=== PATIENT | female | born 1955 | race Caucasian/White ===

== ENCOUNTER 2017-03-17 11:34 | Inpatient (IN) | payer OTHER ==
[~2017-03-17] VITALS: Ht 154.9 cm; Wt 66.2 kg
--- NOTE | 2017-03-17 12:32 | NUR ---
PT C/O CHEST PAIN THAT BEGAN LAST SATURDAY. PT DENIES ANY CHANGE OF DAILY ROUTINE AND SOB. PT DESCRIBES CHEST PAIN FEELING SHARP THAT ONLY LAST 1-2 MIN. PT ALSO STATES SWELLING ON BOTH LOWER EXTREMITIES. BILATERAL FEET NOTED TO BE SWOLLEN. CAP REFILL < 3 WITH A STRONG PEDAL PULSES. IV ESTABLISHED ON PT LEFT FOREARM AND BLOOD SAMPLES COLLECTED. MSE COMPLETED BY DR MANSFIELD. PT IS LAYING IN BED CONNECTED TO CM NO RESPIRATORY DISTRESS NOTED AT THIS TIME.
[2017-03-17 12:54] LABS: PLATELET COUNT 245 x10^3mcL (130-400); RED CELL DISTRIBUTION WIDTH 12.6 % (11.5-14.5)
--- NOTE | 2017-03-17 12:54 | NUR ---
X-RAY AT BEDSIDE
[2017-03-17 12:58] LABS: CHLORIDE SERUM 106 mmol/L (98-107); CREATININE SERUM 0.9 mg/dL (0.6-1.0); GFR1 > 60 mL/min; GLUCOSE SERUM 105 mg/dL (74-106); POTASSIUM SERUM 3.9 mmol/L (3.5-5.1); SODIUM SERUM 144 mmol/L (136-145)
--- NOTE | 2017-03-17 12:59 | NUR ---
ASPIRIN GIVEN TO PT PER MD ORDERS. PT DENIES ANY ALLERGIES TO MEDICATION. PT EDUCATED ON MEDICATION AND VERBALIZES UNDERSTANDING. PT CURRENTLY IN RESTROOM GETTING A URINE SAMPLE. NO DISTRESS NOTED.
[2017-03-17 13:03] LABS: ALBUMIN 3.6 g/dL (3.4-5.0); ALKALINE PHOSPHATASE 69 U/L (46-116); ALT/SGPT 21 U/L (14-59); AST/SGOT 14 U/L (15-37); BILIRUBIN TOTAL 0.2 mg/dL (0.20-1.00); TOTAL PROTEIN, SERUM 7.1 g/dL (6.4-8.2)
--- NOTE | 2017-03-17 13:12 | NUR ---
PT RETURNED FROM RESTROOM. PLACED ON CM.
--- NOTE | 2017-03-17 13:13 | NUR ---
PTS DAUGHTER AT BEDSIDE.
[2017-03-17 13:19] LABS: MONOCYTE 14 % (0-7); SEGMENTED NEUTROPHILS 52 % (37-75); rbc morphology (normal/abnorm) ABNORMAL (NORMAL)
[2017-03-17 13:20] LABS: PLATELET MORPHOLOGY N
[2017-03-17 13:40] LABS: AMPHETAMINE QUAL UR NONE DETECTED (NEG <=1000)
[2017-03-17 13:51] LABS: T4(THYROXINE) 7.5 ug/dL (4.7-13.3)
--- NOTE | 2017-03-17 15:43 | NUR ---
REPORT GIVEN TO DEVELOPMENT TECHNOLOGISTOKSANA FOR CONTINUITY OF CARE.
--- NOTE | 2017-03-17 16:06 | NUR ---
PT LAYING IN BED TALKING ON THE PHONE AND LAUGHING. NO DISTRESS NOTED AT THIS TIME.
--- NOTE | 2017-03-17 16:31 | NUR ---
PT ARRIVED ON UNIT @ 1631 ON GURNEY FROM ED ACCOMPANIED BY ED RNS AND EMT. PT IS AOX4, AMBULATORY. PT RESPONDS TO COMMANDS, APPROPRIATE SPEECH, GUAMANIAN SPEAKING W/ SOME TAJIK. PERRLA, 2MM BRISK. BREATHING EVEN AND UNLABORED ON ROOM AIR. LUNG SOUNDS ARE CLEAR BILATERALLY. S1 S2 HEART SOUNDS AUSCULTATED. ON TELE #46, NSR, HR = 63. PULSES ARE MODERATE X4. CAP REFILL < 3 S. SKIN IS WARM AND YOUNGBLOOD. NO EDEMA NOTED AT THIS TIME. LEFT WRIST IV, 20GA, INTACT, FLUSHES WELL. NS INITIATED @ 90 CC/HR PER ORDER. ABD IS SOFT AND ROUNDED, BOWEL SOUNDS ACTIVE X4Q. PT STATES SHE HAD SOFT BM TODAY AND VOIDS FREELY. SKIN IS INTACT. PT HAS STRONG STRENGTH TO ALL EXTREMETIES, NO WEAKNESS NOTED. PT DENIES CHEST PAIN AT THIS TIME, DENIES HEADACHE, DENIES PAIN. NO DISTRESS NOTED. ORIENTED PT TO ROOM. BED LOW, SIDE RAILS UP X2, CALL LIGHT IN REACH. WILL CONTINUE TO MONITOR.
[2017-03-17 16:32] LABS: PHOSPHOROUS 2.6 mg/dL (2.5-4.9)
[2017-03-17 16:40] LABS: CHOLESTEROL/HDL RATIO 2.9
[2017-03-17 16:41] LABS: FREE T4 0.81 ng/dL (0.76-1.46); FREE THYROXINE INDEX 2.3 ug/dL (1.4-4.5); T4(THYROXINE) 7.2 ug/dL (4.7-13.3)
[2017-03-17 17:10] VITALS: BP 116/66
--- NOTE | 2017-03-17 19:28 | NUR ---
NURSING CO-SIGN THE DOCUMENTATION ENTERED BY THE IP HAS BEEN REVIEWED. REVIEWED/CO-SIGNED BY: Cris Hirsch DOCUMENTATION DONE BY:LESLEY FUENTES
--- NOTE | 2017-03-17 19:28 | NUR ---
REMAINS IN NO DISTRESS, AWAKE AND ALERT. VS STABLE IVF INFUSING WELL AND SITE CLEAR. NO C/O CHEST PAIN AT THIS TIME. WILL BE ENDORSED TO INCOMING SHIFT.
--- NOTE | 2017-03-17 19:54 | NUR ---
PT CURRENTLY RESTING IN BED, NO ACUTE DISTRESS. A/O X4. TELE #46 SHOWING NSR. DENIES CHEST PAIN. PULSES PALPABLE IN ALL EXTREMITIES, NO EDEMA NOTED. LUNG SOUNDS CTA BILATERALLY. BOWEL SOUNDS ACTIVE, LAST BM 03/17/17. VOIDING WELL. AMBULATORY. SKIN INTACT. BLE VARICOSE VEINS NOTED. DENIES PAIN AT THIS TIME. IV PATENT AND INTACT. BED IN LOWEST POSITION, SIDE RAILS UP X2, SCDS IN PLACE, CALL LIGHT WITHIN REACH. WILL CONTINUE TO MONITOR.
[2017-03-17 20:28] VITALS: BP 108/62
[2017-03-17 22:02] VITALS: BP 119/72
[2017-03-17 22:36] VITALS: Ht 154.9 cm; Wt 66.2 kg
--- NOTE | 2017-03-18 01:08 | NUR ---
PT CURRENTLY RESTING IN BED, NO ACUTE DISTRESS. WILL CONTINUE TO MONITOR.
--- NOTE | 2017-03-18 05:57 | NUR ---
PT SLEPT PERIODICALLY THROUGHOUT NIGHT, NO ACUTE DISTRESS. ALL NEEDS MET AND ATTENDED TO. NO SIGNFICANT CHANGES. IV PATENT AND INTACT. BED IN LOWEST POSITION, SIDE RAILS UP X2, SCDS IN PLACE, CALL LIGHT WITHIN REACH. WILL ENDORSE CARE TO ONCOMING NURSE.
[2017-03-18 06:11] LABS: BASOPHIL % 0.8 % (0-2); PLATELET COUNT 222 x10^3mcL (130-400); RED CELL DISTRIBUTION WIDTH 13.8 % (11.5-14.5)
[2017-03-18 06:17] VITALS: BP 115/64
[2017-03-18 06:32] LABS: CALCIUM 8.7 mg/dL (8.5-10.1); CARBON DIOXIDE 28.9 mmol/L (21-32); CHLORIDE SERUM 108 mmol/L (98-107); CREATININE SERUM 0.9 mg/dL (0.6-1.0); GFR1 > 60 mL/min; GLUCOSE SERUM 94 mg/dL (74-106); MAGNESIUM 2.1 mg/dL (1.8-2.4); PHOSPHOROUS 3.9 mg/dL (2.5-4.9); POTASSIUM SERUM 4.2 mmol/L (3.5-5.1); SODIUM SERUM 144 mmol/L (136-145)
--- NOTE | 2017-03-18 07:10 | NUR ---
RECEIVED REPORT FROM [facility] MARIBEL MORRIS AT THIS TIME. PATIENT IS RESTING IN BED AWAKE, ALERT AND O X 4. TELE # [address], C/O CHEST TIGHTNESS 2/10. ON ROOM AIR, NO DISTRESS NOTED, LUNGS CTA. PULSES MODERATE, NO EDEMA NOTED. BOWEL SOUNDS ACTIVE. SKIN, WARM, DRY INTACT. IV TO RAC IN PLACE. INSTRUCTED ON USE OF CALL LIGHT.
--- NOTE | 2017-03-18 08:21 | NUR ---
ROUNDS MADE AT THIS TIME. DR. ROBBINS, RESIDENT TEAM, FIREARMS SPECIALIST ATIYA AND PRIMARY RN AT THE BEDSIDE. PLAN OF CARE DISCUSSED. PATIENT VERBALIZES UNDERSTANDING.
[2017-03-18 10:05] VITALS: BP 123/60
[2017-03-18 10:58] LABS: UA SPECIFIC GRAVITY <=1.005 (1.005-1.035); microscopic required? YES; urine erythrocyte TRACE (NEGATIVE)
--- NOTE | 2017-03-18 11:10 | NUR ---
PATIENT RESTING IN BED, NO DISTRES NOTED. PATIENT DENIES ANY PAIN AT THIS TIME. MADE PATIENT COMFORTABLE AND CREATED RELAXING ENVIORNMENT. CALL LIGHT WITH IN REACH.
--- NOTE | 2017-03-18 11:14 | NUR ---
NOTIFIED DR. MCGILL OF [facility] RESULTS AT THIS TIME.
[2017-03-18 14:03] VITALS: BP 116/56
--- NOTE | 2017-03-18 14:51 | NUR ---
PATIENT RESTING IN BED, NO DISTRESS NOTED. FAMILY AT THE BEDSIDE.
--- NOTE | 2017-03-18 17:13 | NUR ---
PT C/O PAIN IN IV SITE, REMOVED IV CATHETER, CANNULA INTACT, STARTED NEW IV 20G IN RFA. IV SITE WNL
[2017-03-18 18:02] VITALS: BP 115/60
--- NOTE | 2017-03-18 20:00 | NUR ---
PT A/A/O X4, FAMILY AT BEDSIDE. PT DENIES DIZZINESS AND HEADACHE. BREATH SOUNDS CLEAR. BREATHING EVEN AND UNLABORED ON ROOM AIR. DENIES CHEST PAIN AND PRESSURE THUS FAR. BOWEL SOUNDS ACTIVE. NO C/O N/V AND ABD PAIN. IV INTACT ON THE RIGHT FOREARM INFUSING WITH NS AT 90M ML/HR. MADE PT COMFORTABLE. PLACED CALL LIGHT WITH IN REACH. WILL CONTINUE TO MONITOR.
[2017-03-18 20:31] VITALS: BP 103/45
--- NOTE | 2017-03-19 00:14 | NUR ---
PT RESTING WITH EYES CLOSED. NO DISTRESS AND DISCOMFORT NOTED. MADE PT COMFORTABLE. WILL CONTINUE TO MONITOR.
[2017-03-19 05:16] VITALS: BP 103/56
--- NOTE | 2017-03-19 05:39 | NUR ---
PT QUIET AND RESTING. NO C/O CHEST PAIN THUS FAR. IV INTACT AND INFUSING ORDERED. MADE PT COMFORTABLE. WILL ENDORSE TO THE AM NURSE ACCORDINGLY.
--- NOTE | 2017-03-19 07:15 | NUR ---
PT WAS ENDORSE TO ME THIS MORNING. PT A/O X4. PT BREATHING EVEN AND UNLABORED. IV TO THE RFA INFUSING AT 90 ML/HR NS. NO REDNESS OR SWELLING NOTED. PT DENIES ANY CHEST PAIN OR DISCOMFORT AT THIS TIME. CALL LIGHT IN REACH. BED IN LOW POSITION. WILL CONTINUE PLAN OF CARE.
[2017-03-19] MEDS ORDERED: MAC100 PO (09:30)
[2017-03-19] MEDS ORDERED: BD LACTINEX1.4 MG PO (09:31)
[2017-03-19] MEDS ORDERED: IBUPROFEN400 MG PO (09:31)
[2017-03-19 11:10] VITALS: BP 115/60
[2017-03-19 13:51] VITALS: BP 115/60
--- NOTE | 2017-03-19 14:20 | NUR ---
WENT OVER DISCHARGE PAPER WORK WITH PT AND DAUGHTER. PT AGREED AND SIGNED ALL DOCUMENTS. REMOVED PT TELE 46 AND IV. NO REDNESS OR SWELLING NOTED, PT TOLERATED REMOVAL WELL. PT DENIES CHEST PAIN OR DISCOMFORT AT THIS TIME. EL ELKINS WALKED PT AND DAUGHTER DOWN TO DISCHARGE LOBBY.
== END 2017-03-19 14:14 | disposition home or self-care (01) | DRG 203 ==
LOC: ED 11:34 → DU 14:01 → MU 03-19 11:19
PROVIDERS: Emergency Medicine; ADMIT Family Medicine
DX: M94.0 Chondrocostal junction syndrome [Tietze] (principal); N39.0 Urinary tract infection, site not specified; E78.5 Hyperlipidemia, unspecified; M19.041 Primary osteoarthritis, right hand; M19.042 Primary osteoarthritis, left hand; M17.0 Bilateral primary osteoarthritis of knee; Z68.27 Body mass index [BMI] 27.0-27.9, adult
CPT/HCPCS: 82962; 83880; 84439; J0696; J7030

== ENCOUNTER 2017-03-23 09:19 | Emergency (ER) | payer OTHER ==
[~2017-03-23 09:19] MED LIST: BD LACTINEX1.4 MG PO; IBUPROFEN400 MG PO; MAC100 PO
[2017-03-23 09:29] VITALS: BP 145/72
== END 2017-03-23 13:00 | disposition home or self-care (01) ==
LOC: ED 09:19
DX: I80.8 Phlebitis and thrombophlebitis of other sites (principal)

== ENCOUNTER 2017-10-21 14:35 | Inpatient (IN) | payer OTHER ==
[~2017-10-21] VITALS: Ht 154.9 cm; Wt 65.5 kg
[2017-10-21 16:57] LABS: CALCIUM 8.8 mg/dL (8.5-10.1); CARBON DIOXIDE 30.5 mmol/L (21-32); CHLORIDE SERUM 101 mmol/L (98-107); CREATININE SERUM 0.9 mg/dL (0.6-1.0); GFR1 > 60 mL/min; GLUCOSE SERUM 90 mg/dL (74-106); POTASSIUM SERUM 3.8 mmol/L (3.5-5.1); SODIUM SERUM 138 mmol/L (136-145)
[2017-10-21 17:01] LABS: ALBUMIN 3.7 g/dL (3.4-5.0); ALKALINE PHOSPHATASE 62 U/L (46-116); ALT/SGPT 30 U/L (14-59); AST/SGOT 20 U/L (15-37); BILIRUBIN TOTAL 0.2 mg/dL (0.20-1.00); TOTAL PROTEIN, SERUM 7.5 g/dL (6.4-8.2)
[2017-10-21 17:08] LABS: BASOPHIL % 0.9 % (0-2); PLATELET COUNT 270 x10^3mcL (130-400); RED CELL DISTRIBUTION WIDTH 14.3 % (11.5-14.5)
[2017-10-21 19:52] LABS: CHOLESTEROL/HDL RATIO 2.8; MAGNESIUM 2.3 mg/dL (1.8-2.4); PHOSPHOROUS 4.1 mg/dL (2.5-4.9)
[2017-10-21 20:00] LABS: T3 TOTAL 0.8 ng/mL
[2017-10-21 20:04] LABS: FREE T4 0.91 ng/dL (0.76-1.46); FREE THYROXINE INDEX 2.4 ug/dL (1.4-4.5); T4(THYROXINE) 7.4 ug/dL (4.7-13.3)
[2017-10-21 20:10] VITALS: BP 129/65
[2017-10-21 20:12] VITALS: Ht 154.9 cm; Wt 65.5 kg
[2017-10-22 00:24] LABS: UA SPECIFIC GRAVITY <=1.005 (1.005-1.035); microscopic required? YES; urine erythrocyte TRACE (NEGATIVE)
[2017-10-22 00:41] LABS: AMPHETAMINE QUAL UR NONE DETECTED (NEG <=1000)
[2017-10-22 04:23] LABS: BASOPHIL % 0.7 % (0-2); PLATELET COUNT 249 x10^3mcL (130-400); RED CELL DISTRIBUTION WIDTH 13.8 % (11.5-14.5)
[2017-10-22 04:27] LABS: CALCIUM 8.6 mg/dL (8.5-10.1); CARBON DIOXIDE 27.4 mmol/L (21-32); CHLORIDE SERUM 104 mmol/L (98-107); CREATININE SERUM 0.8 mg/dL (0.6-1.0); GFR1 > 60 mL/min; GLUCOSE SERUM 87 mg/dL (74-106); POTASSIUM SERUM 3.7 mmol/L (3.5-5.1); SODIUM SERUM 139 mmol/L (136-145)
[2017-10-22 06:18] VITALS: BP 101/51
[2017-10-22 09:25] VITALS: BP 99/56
[2017-10-22 12:47] VITALS: BP 99/55
[2017-10-22 17:00] VITALS: BP 96/56
[2017-10-22 19:25] VITALS: BP 108/57
[2017-10-23 05:33] VITALS: BP 105/55
[2017-10-23 06:51] LABS: BASOPHIL % 0.9 % (0-2); CARBON DIOXIDE 27.5 mmol/L (21-32); CHLORIDE SERUM 105 mmol/L (98-107); CREATININE SERUM 0.8 mg/dL (0.6-1.0); GFR1 > 60 mL/min; GLUCOSE SERUM 90 mg/dL (74-106); MAGNESIUM 2.2 mg/dL (1.8-2.4); PHOSPHOROUS 4.2 mg/dL (2.5-4.9); PLATELET COUNT 250 x10^3mcL (130-400); RED CELL DISTRIBUTION WIDTH 14.1 % (11.5-14.5); SODIUM SERUM 140 mmol/L (136-145)
[2017-10-23 08:52] VITALS: BP 125/72
[2017-10-23] MEDS ORDERED: NIT0.4 SL (09:46)
[2017-10-23] MEDS ORDERED: LIPI10 PO (09:46)
[2017-10-23] MEDS ORDERED: ECO81 PO (09:48)
[2017-10-23] MEDS ORDERED: GOOD SENSE OMEP20 MG PO (09:55)
[2017-10-23 10:15] VITALS: BP 125/72
== END 2017-10-23 11:44 | disposition home or self-care (01) | DRG 243 ==
LOC: ED 14:35 → DU 18:24
PROVIDERS: Emergency Medicine; Family Medicine
DX: K21.9 Gastro-esophageal reflux disease without esophagitis (principal); N39.0 Urinary tract infection, site not specified; E78.2 Mixed hyperlipidemia; M94.0 Chondrocostal junction syndrome [Tietze]; D64.9 Anemia, unspecified; M19.90 Unspecified osteoarthritis, unspecified site; Z79.899 Other long term (current) drug therapy
CPT/HCPCS: 83880; 84439; J0696; J7030

== ENCOUNTER 2018-09-06 12:43 | Emergency (ER) | payer MEDICARE, OTHER ==
[~2018-09-06] VITALS: Ht 160 cm; Wt 64.0 kg
[~2018-09-06 12:43] MED LIST changes: +ECO81 PO; +GOOD SENSE OMEP20 MG PO; +LIPI10 PO; +NIT0.4 SL
[2018-09-06 12:54] VITALS: BP 117/66; Ht 160 cm; Wt 64.0 kg
== END 2018-09-06 14:27 | disposition home or self-care (01) ==
LOC: ED 12:43
DX: S96.912D Strain of unspecified muscle and tendon at ankle and foot level, left foot, subsequent encounter (principal); X58.XXXD Exposure to other specified factors, subsequent encounter
CPT/HCPCS: J1885; Q0092

== ENCOUNTER 2018-10-11 10:53 | Emergency (ER) | payer MEDICARE, OTHER ==
[~2018-10-11] VITALS: Ht 154.9 cm; Wt 63.5 kg
[2018-10-11 11:00] VITALS: Ht 154.9 cm; Wt 63.5 kg
[2018-10-11 11:30] LABS: BASOPHIL % 0.1 % (0-2); PLATELET COUNT 311 x10^3mcL (130-400); RED CELL DISTRIBUTION WIDTH 12.6 % (11.5-14.5)
[2018-10-11 11:35] LABS: CALCIUM 9.2 mg/dL (8.5-10.1); CARBON DIOXIDE 30.4 mmol/L (21-32); POTASSIUM SERUM 4.1 mmol/L (3.5-5.1)
[2018-10-11 11:40] LABS: ALBUMIN 4.1 g/dL (3.4-5.0); BILIRUBIN TOTAL 0.33 mg/dL (0.20-1.00); TOTAL PROTEIN, SERUM 8.2 g/dL (6.4-8.2)
[2018-10-11 16:03] VITALS: BP 110/70
== END 2018-10-11 16:03 | disposition home or self-care (01) ==
LOC: ED 10:53
DX: R42 Dizziness and giddiness (principal); R11.2 Nausea with vomiting, unspecified; E78.00 Pure hypercholesterolemia, unspecified
CPT/HCPCS: 83880; J2405; J7030; J8597; Q0092